=== PATIENT | male | born 1945 | race Caucasian/White ===

== ENCOUNTER 2017-08-11 09:51 | Emergency (ER) | payer OTHER ==
[~2017-08-11] VITALS: Ht 175.3 cm; Wt 82.7 kg
[~2017-08-11 09:51] MED LIST: AMLODIPINE BESY10 MG PO; ASCORBIC ACID100 MG PO; ASPIR 8181 M1 PO; ASPIRIN81 M2 PO; Ascorbic Acid PO; CARDIZEM CD,CA240 MG PO; CIPRO500 MG PO; Cardizem CD,Cartia X PO; DILTIAZEM 24HR120 MG PO; DIOVAN320 MG PO; FISH OIL CONC1 EACH PO; FISH OIL CONC1000 M1 PO; FLOXIN OTIC SOLN5 ML RIGHT EAR; FUROSEMIDE20 MG PO; HYDROCHLOROTHIA50 MG PO; IMODIUM MS REL1 EACH PO; IMODIUM2 MG PO; ISOSORBIDE MONO30 MG PO; K-Dur PO; LACTINEX,FLO1 PACKET PO; LEXAPRO10 MG PO; LOMOTIL TABLET1 EACH PO; LOTREL 10/21 CAPSULE PO; METOPROLOL SUCC50 MG PO; NEXIUM20 MG PO; NEXIUM40 MG PO; NITROGLYCERIN0.4 MG SL; OMEPRAZOLE20 M1 PO; Omega III EPA + DHA PO; PLAVIX75 MG PO; QUESTRAN4 GM/PACKE PO; TENORMIN50 MG PO; TOPROL XL50 MG PO; TRAMADOL HCL50 MG PO; Toprol XL PO; Tylenol Regular Stre PO; VITAMIN B; VITAMIN B12-FO1 EACH PO; VITAMIN C; VITAMIN E; VITAMIN E1000 UNIT PO; VYTORIN 10-101 EACH PO; Vantin PO; Vitamin B Complex PO; WARFARIN SODIUM2 MG PO; Xarelto PO; ZESTRIL20 MG PO; ZOFRAN4 MG PO
[2017-08-11 10:24] LABS: HEMATOCRIT 44.4 % (38.0-50.0); MCH 30.2 PG (29.0-34.0); MCHC 33.1 G/DL (30.0-36.0); MCV 91.2 FL (86-99); RBC DIS.WIDTH-CV 15.7 % (11.8-14.6); RBC DIS.WIDTH-SD 53.1 % (39-53); RED BLOOD COUNT 4.87 M/uL (4.00-5.50); WHITE BLOOD COUNT 10.7 K/uL (4.1-10.2)
[2017-08-11 10:31] LABS: INTER. NORMALIZED RATIO 1.3; PROTHROMBIN TIME 14.1 SEC (10.2-12.9)
[2017-08-11 10:33] LABS: CHLORIDE 107 mEq/L (99-109); PTT 34.5 SEC (25-37); SODIUM 141 mEq/L (136-147)
[2017-08-11 10:34] LABS: GLUCOSE 119 mg/dL (70-99)
[2017-08-11 10:36] LABS: ANION GAP 10 MEQ/L (2-14)
[2017-08-11 10:38] LABS: GFR ESTIMATE (CALCULATED) > 59 mL/min/
[2017-08-11 10:39] LABS: UREA NITROGEN (BUN) 20 mg/dL (9-23)
[2017-08-11 11:17] LABS: MEAN PLAT.VOLUME 11.8 uM^3 (9.0-12.4); PLAT.SUFFICIENCY ADEQUATE; PLATELET COUNT 269 K/uL (156-360)
[2017-08-11 13:13] VITALS: BP 152/99
== END 2017-08-11 13:14 | disposition home or self-care (01) ==
LOC: EME 09:51
PROVIDERS: Emergency Medicine
DX: S00.81XA Abrasion of other part of head, initial encounter (principal); S16.1XXA Strain of muscle, fascia and tendon at neck level, initial encounter; S46.912A Strain of unspecified muscle, fascia and tendon at shoulder and upper arm level, left arm, initial encounter; W10.9XXA Fall (on) (from) unspecified stairs and steps, initial encounter; K21.9 Gastro-esophageal reflux disease without esophagitis; I48.91 Unspecified atrial fibrillation; I10 Essential (primary) hypertension; N40.0 Benign prostatic hyperplasia without lower urinary tract symptoms; Z79.01 Long term (current) use of anticoagulants; Z79.82 Long term (current) use of aspirin
CPT/HCPCS: 70450; 72040; 72125; 73030; 80048; 85027; 85610; 85730; 99281; 99284